=== PATIENT | female | born 1980 | race Caucasian/White ===

== ENCOUNTER 2016-05-10 03:28 | Emergency (ER) | payer SELFPAY ==
[2016-05-10 03:43] VITALS: BP 127/82
[2016-05-10] MEDS ORDERED: oxyCODONE/Acetamin 5/325 MG* TAB PO ONE (03:53)
[2016-05-10] MEDS ORDERED: Clindamycin CAP* 150 MG PO ONE (03:53)
--- NOTE | 2016-05-10 06:34 | ED ---
Isabell Pacheco Michael, scribed for Viet Nava MD on 05/10/16 at 0359 . Throat Pain/Nasal Congestion - HPI Summary HPI Summary: 35 y/o female comes to the ED presenting with upper gradual left dental pain that started a couple of days ago after eating sun flower seeds. Nothing has alleviated the dental pain. The pt denies a significant PMHx. - History of Current Complaint Chief Complaint: EDDentalPain Time Seen by Provider: 05/10/16 03:33 Hx Obtained From: Patient, Medical Records Onset/Duration: Gradual Onset, Lasting Days, Still Present Severity: Moderate Associated Signs And Symptoms: Negative: Negative - dental pain - Allergies/Home Medications Allergies/Adverse Reactions: Allergies Allergy/AdvReac Type Severity Reaction Status Date / Time Penicillin V Allergy Severe Stomach Verified 02/26/15 17:32 [From Penicil VK] Cramps PMH/Surg Hx/FS Hx/Imm Hx Endocrine/Hematology History: Denies: Hx Diabetes, Hx Thyroid Disease Cardiovascular History: Denies: Hx Hypertension Respiratory History: Denies: Hx Asthma, Hx Chronic Obstructive Pulmonary Disease (COPD) GI History: Denies: Hx Ulcer - Surgical History Surgery Procedure, Year, and Place: Ganglion Cyst right and left wrist Infectious Disease History: No Infectious Disease History: Denies: Hx Clostridium Difficile, Hx Hepatitis, Hx Human Immunodeficiency Virus (HIV), Hx of Known/Suspected MRSA, Hx Shingles, Hx Tuberculosis, Hx Known/ Suspected VRE, Hx Known/Suspected VRSA, History Other Infectious Disease, Traveled Outside the [place] in Last 30 Days - Family History Known Family History: Positive: Other - cirrhosis of liver - father, alcoholism Negative: Cardiac Disease, Hypertension, Diabetes - Social History Occupation: Employed Full-time Lives: With Family Alcohol Use: Rare Substance Use Type: Reports: Marijuana Substance Use Comment - Amount & Last Used: OCCASIONALLY once a month Smoking Status (MU): Heavy Every Day Tobacco Smoker Type: Cigarettes Amount Used/How Often: 1/2 PPD Review of Systems Negative: Fever Positive: Dental Pain All Other Systems Reviewed And Are Negative: Yes Physical Exam - Summary Physical Exam Summary: GENERAL EXAM GENERAL: Awake, alert, oriented, no acute distress, very pleasant HEENT: Head is normocephalipolc, atraumatic, anicteric sclera, clear conjunctiva , mucous membranes moist, no erythema, no discharge, no lesions, neck is supple , trachea is midline, no JVD CARDIAC: Regular rate and rhythm, S1, S2, no rub, no murmur, no gallop, 2+ radial and pedal pulses bilaterally RESPIRATORY: Clear to auscultation bilaterally with no rales, rhonchi, or wheezes, non-tender ABDOMEN: Bowel sounds positive, no bruit, soft, non-tender, no CVA tenderness EXTREMITIES: No edema, warm, dry, moving all extremities in a grossly normal manner NEUROLOGICAL: Mood is appropriate, moving all extremities in a grossly normal manner DENTAL: fracture 16th tooth no fluctuant mass Triage Information Reviewed: Yes Vital Signs On Initial Exam: Initial Vitals Temp Pulse Resp BP Pulse Ox 98.0 F 91 17 127/82 99 05/10/16 03:35 05/10/16 03:35 05/10/16 03:35 05/10/16 03:35 05/10/16 03:35 Vital Signs Reviewed: Yes Diagnostics - Vital Signs Vital Signs Temp Pulse Resp BP Pulse Ox 05/10/16 03:35 98.0 F 91 17 127/82 99 - Laboratory Lab Statement: Any lab studies that have been ordered have been reviewed, and results considered in the medical decision making process. EENT Course/Dx - Diagnoses Provider Diagnoses: dental pain Discharge - Discharge Plan Condition: Stable Disposition: HOME Prescriptions: Clindamycin CAP* [Cleocin 150 MG CAP*] 300 mg PO QID #40 cap oxyCODONE/Acetamin 5/325 MG* [Percocet 5/325 TAB*] 1 tab PO Q4H PRN #15 tab MDD 4 PRN Reason: Pain Patient Education Materials: Toothache (ED) Referrals: No Primary Care Phys,NOPCP [Primary Care Provider] - Additional Instructions: You will follow up with your dentist on 05/12/16. PLEASE RETURN TO THE EMERGENCY DEPARTMENT FOR NAUSEA, VOMITING, FEVER, PHOTOPHOBIA, CHEST PAIN, OR IF SYMPTOMS WORSEN. The documentation as recorded by the Isabell león Michael accurately reflects the service I personally performed and the decisions made by me, Viet Nava MD.
== END 2016-05-10 04:09 | disposition home or self-care (01) ==
LOC: ED 03:28
DX: K08.89 Other specified disorders of teeth and supporting structures (principal); F17.210 Nicotine dependence, cigarettes, uncomplicated; Z88.0 Allergy status to penicillin
CPT/HCPCS: 99282; A9270-GY

== ENCOUNTER → 2016-12-23 08:33 | Emergency (ER) | payer SELFPAY ==
[2016-12-23 09:57] VITALS: BP 142/93
--- NOTE | 2016-12-23 11:24 | ED ---
Throat Pain/Nasal Congestion - HPI Summary HPI Summary: Patient arrives to ED with CC of pain over left lower molar radiating to the jaw and ear. She states she fell 2 days ago and hit her tooth, which pushed the tooth into another which is s/p mid-root canal. She states she needs to have a full extraction of all teeth, but has been awaiting insurance. Notes to some trismus, but denies drooling or dysphagia. Pain is 10/10, sharp and throbbing. Denies airway compromise or SOB. Denies ear pain, eye pain, blurry vision or double vision. Otherwise healthy. Pain is worse with chewing and cold drinks, not better with ibuprofen. There is notable swelling over the bottom left lower mandible with no appreciated abscess. - History of Current Complaint Chief Complaint: EDDentalPain Time Seen by Provider: 12/23/16 09:04 Hx Obtained From: Patient Onset/Duration: Sudden Onset Severity: Moderate - Epiglottits Risk Factors Epiglottis Risk Factors: Negative - Allergies/Home Medications Allergies/Adverse Reactions: Allergies Allergy/AdvReac Type Severity Reaction Status Date / Time Penicillin V Allergy Severe Stomach Verified 02/26/15 17:32 [From Penicil VK] Cramps PMH/Surg Hx/FS Hx/Imm Hx Previously Healthy: Yes Endocrine/Hematology History: Denies: Hx Diabetes, Hx Thyroid Disease Cardiovascular History: Denies: Hx Hypertension Respiratory History: Denies: Hx Asthma, Hx Chronic Obstructive Pulmonary Disease (COPD) GI History: Denies: Hx Ulcer - Surgical History Surgery Procedure, Year, and Place: Ganglion Cyst right and left wrist - Immunization History Hx Pertussis Vaccination: No Immunizations Up to Date: Unable to Obtain/Confirm Infectious Disease History: No Infectious Disease History: Denies: Hx Clostridium Difficile, Hx Hepatitis, Hx Human Immunodeficiency Virus (HIV), Hx of Known/Suspected MRSA, Hx Shingles, Hx Tuberculosis, Hx Known/ Suspected VRE, Hx Known/Suspected VRSA, History Other Infectious Disease, Traveled Outside the [place] in Last 30 Days - Family History Known Family History: Positive: Other - cirrhosis of liver - father, alcoholism Negative: Cardiac Disease, Hypertension, Diabetes - Social History Occupation: Employed Full-time Lives: With Family Alcohol Use: Rare Hx Substance Use: Yes Substance Use Type: Reports: Marijuana Substance Use Comment - Amount & Last Used: OCCASIONALLY once a month Hx Tobacco Use: Yes Smoking Status (MU): Heavy Every Day Tobacco Smoker Type: Cigarettes Amount Used/How Often: 1/2 PPD Review of Systems Constitutional: Negative Negative: Fever, Chills Positive: Dental Pain Cardiovascular: Negative Gastrointestinal: Negative Genitourinary: Negative Positive: no symptoms reported, see HPI Skin: Negative Psychological: Normal All Other Systems Reviewed And Are Negative: Yes Physical Exam Triage Information Reviewed: Yes Vital Signs On Initial Exam: Initial Vitals Temp Pulse Resp BP Pulse Ox 97.3 F 73 20 134/82 98 12/23/16 08:39 12/23/16 08:39 12/23/16 08:39 12/23/16 08:39 12/23/16 08:39 Completion Of Physical Exam Limited Due To: Dementia Appearance: Positive: Well-Appearing, Well-Nourished Skin: Positive: Warm, Skin Color Reflects Adequate Perfusion Head/Face: Positive: Normal Head/Face Inspection. Negative: TMJ Tenderness, Cephalohematoma Eyes: Positive: EOMI, YOMAIRA, Conjunctiva Clear ENT: Positive: Dental tenderness. Negative: Tonsillar swelling, Tonsillar exudate Neck: Positive: Supple, Tenderness @ - cervical anterior LN Respiratory/Lung Sounds: Positive: Clear to Auscultation, Breath Sounds Present Cardiovascular: Positive: RRR, Pulses are Symmetrical in both Upper and Lower Extremities Musculoskeletal: Positive: Normal, Strength/ROM Intact Neurological: Positive: Speech Normal Psychiatric: Positive: Normal AVPU Assessment: Alert Diagnostics - Vital Signs Vital Signs Temp Pulse Resp BP Pulse Ox 12/23/16 09:56 98.8 F 73 16 142/93 12/23/16 08:49 97.6 F 72 16 143/82 99 12/23/16 08:39 97.3 F 73 20 134/82 98 - Laboratory Lab Statement: Any lab studies that have been ordered have been reviewed, and results considered in the medical decision making process. EENT Course/Dx - Course Course Of Treatment: No dental abscess or lesions seen over area of concern. Swelling noted over the left lower mandible. No erythema at site of pain. No drainage from area. Several dental caries, cavities, crowding and broken teeth throughout. Pain on palpation over mandible. No TMJ tenderness. Pain with opening and closing mouth. Poor dental hygiene and outpatient dental care. Will treat for possible dental infection/abscess based on symptoms of pain and radiation to jaw and ear. No allergies. Will treat with Clindamycin d/t allergy to penicillin. Patient is given percoset q6h x 3 days only as needed for breakthrough pain not well controlled with ibuprofen. Patient to follow up immediately with dentist. She is given dental follow ups, lollicaines, information on how to care for dental pain/ abscess. - Differential Diagnoses Differential Diagnoses: Dental Abscess, Dental Caries, Mandibular/Maxillary Trauma, Odontogenic Pain, Pain of Unknown Etiology - Diagnoses Provider Diagnoses: Pain, dental Discharge - Discharge Plan Condition: Stable Disposition: HOME Prescriptions: Clindamycin Cap(NF) [Clindamycin Cap 300 mg Cap(NF)] 300 mg PO Q6H #28 cap oxyCODONE/Acetamin 10/325(NF) [Percocet 10/325 (NF)] 1 tab PO Q6H #12 tab MDD 4 Patient Education Materials: Dental Abscess (ED), Acute Dental Trauma (ED), Toothache (ED) Referrals: No Primary Care Phys,NOPCP [Primary Care Provider] - Additional Instructions: You have been diagnosed with dental pain with possible infection: Antibiotics as prescribed to you. Clindamycin four times daily for 7 days. To minimize the potential for gastrointestinal intolerance, Clindamycin should be taken at the start of a meal. If you have any questions about your medication, please contact us or ask your pharmacist. Salt water rinses several times per day will improve healing time. Ibuprofen 600mg three times daily with meals for discomfort. For pain not well controlled with Ibuprofen, you may take Percoset up to 4 times daily I have given you information for dentists in the area. Please call today for appt. May use lollicaines over the area for comfort. Follow up with a dentist for routine care to prevent recurrence of infections. If fever, worsening pain or swelling develops, see your PCP, dentist or come back to the Emergency Department. Images - Images Dental: 1 - with crowding and broken tooth
== END | disposition home or self-care (01) ==
LOC: ED 08:33
DX: K08.89 Other specified disorders of teeth and supporting structures (principal); F17.210 Nicotine dependence, cigarettes, uncomplicated
CPT/HCPCS: 99282

== ENCOUNTER 2017-11-01 09:06 | Emergency (ER) | payer SELFPAY ==
[2017-11-01 09:27] VITALS: BP 131/68
[2017-11-01] MEDS ORDERED: Lidocaine 1% MPF* 2 ML VIAL INJ ONE (09:28)
[2017-11-01] MEDS ORDERED: Lidocaine 1%* 5 ML VIAL ONE (09:41)
--- NOTE | 2017-11-01 10:36 | UC ---
Skin Complaint HPI - HPI Summary HPI Summary: Patient present 13 hours s/p fall that occurred while she was walking her dog. The lead got wrapped around her leg, and she fell and hit the right side of her forehead on a log. She report no LOC, or neck pain, but does report pain at the site of her laceration. She cleaned it up and didn;t realize how deep it was until this morning. She states the area of the laceration is throbbing. She denies any double vision, headache, loc, neck pain, nausea or vomiting. - History of Current Complaint Chief Complaint: UCLaceration Time Seen by Provider: 11/01/17 09:19 Stated Complaint: HEAD LAC Hx Obtained From: Patient Hx Last Menstrual Period: 11/01/17 Onset/Duration: Sudden Onset, Lasting Hours Skin Exposure Onset/Duration: Hours Ago Timing: Constant Onset Severity: Moderate Current Severity: Moderate Pain Intensity: 3 Location: Discrete - right side of forehead. Aggravating Factor(s): Touch Alleviating Factor(s): Nothing Associated Signs & Symptoms: Positive: Negative Related History: Trauma - Allergy/Home Medications Allergies/Adverse Reactions: Allergies Allergy/AdvReac Type Severity Reaction Status Date / Time Penicillins Allergy Stomach Verified 11/01/17 09:27 Cramps Review of Systems Constitutional: Negative Skin: Other - laceration forehead. Eyes: Negative ENT: Negative Respiratory: Negative Cardiovascular: Negative Gastrointestinal: Negative Genitourinary: Negative Motor: Negative Neurovascular: Negative Musculoskeletal: Negative Neurological: Negative Psychological: Negative Is Patient Immunocompromised?: No All Other Systems Reviewed And Are Negative: Yes PMH/Surg Hx/FS Hx/Imm Hx Previously Healthy: Yes - Surgical History Surgical History: Yes Surgery Procedure, Year, and Place: Ganglion Cyst right and left wrist - Family History Known Family History: Positive: Other - cirrhosis of liver - father, alcoholism Negative: Cardiac Disease, Hypertension, Diabetes - Social History Occupation: Employed Full-time Lives: Alone Alcohol Use: Occasionally Substance Use Type: Marijuana Substance Use Comment - Amount & Last Used: OCCASIONALLY once a month Smoking Status (MU): Heavy Every Day Tobacco Smoker Type: Cigarettes Amount Used/How Often: 1/2 PPD - Immunization History Most Recent Influenza Vaccination: utd Most Recent Tetanus Shot: up to date with tetanus Most Recent Pneumonia Vaccination: none Physical Exam Triage Information Reviewed: Yes Appearance: Well-Appearing Vital Signs: Initial Vital Signs Temp 97.9 F 07/15/18 09:19 Pulse 68 11/01/17 09:19 Resp 18 11/01/17 09:19 BP 131/68 11/01/17 09:19 Pulse Ox 98 11/01/17 09:19 Vital Signs Reviewed: Yes Eye Exam: Normal ENT Exam: Normal Dental Exam: Normal Neck exam: Normal Neck: Positive: 1 Respiratory Exam: Normal Cardiovascular Exam: Normal Abdominal Exam: Normal Musculoskeletal Exam: Normal Neurological Exam: Normal Psychological Exam: Normal Skin Exam: Other - forehead laceratin; 1.0 cm L x 4.0 cm W x 1.0 cm D. minor soft tissue swelling surrounding the wound. no foreign body noted visualized a bloodless wound bed. Laceration Repair - Laceration Repair 1 Description: Linear Laceration Size After Repair: Length (cm) - 1.0, Width (mm) - 4.0, Depth (mm) - 1.0 Modified For Repair: No Type Injection: Local Anesthesia Used: 2.0% Lido Cleansing Completed Via Routine Prep: Yes Irrigation With Pressure Irrigation Device: Yes Closure Material: Sutures Closure Method: Single Layer Suture Type: Nylon - 4 simple interrupted sutures placed. Course/Dx - Course Course Of Treatment: Patient presents 13 hours s/p laceration of the forehead. Tetanus is reported to be up todate. 4 simple interrupted sutures placed to approxiamte the wound Keflex 500 mg four times daily RX. Recommed 48 hours f/u. Patient was offered plastic surgeon nirali daly. She understand this wound is high risk for infection given the delay in closure. We cleaned it here with hebiclens and steril water, Xrays were obtianed and no obvious foreign body seen. I could not see any foreign body in the wound, and patient did not sence foreign body in the wound. She verbalizes understanding of and in agreement with the discharge plan. - Differential Diagnoses - Skin Complaint Differential Diagnoses: Other - laceration - Diagnoses Provider Diagnoses: laceration Discharge - Sign-Out/Discharge Documenting (check all that apply): Patient Departure - Discharge Plan Condition: Stable Disposition: HOME Prescriptions: Cephalexin CAP* [Keflex CAP*] 500 mg PO QID #40 cap Patient Education Materials: Care For Your Stitches (DC), Laceration (DC) Forms: *Work Release Referrals: No Primary Care Phys,NOPCP [Primary Care Provider] - Additional Instructions: You will need to continuously monitor for signs of infection, given you cut your head on wood and didn't seek medical attention for over 13 hours after the injury. If you develop redness, pain, warmth or additional swelling seem immediate medical attention. The stitches will need to come out in 7-10 days. - Billing Disposition and Condition Condition: STABLE Disposition: Home Images Head: 1 - area of laceration.
--- NOTE | 2017-11-01 10:38 | RAD ---
INDICATION: Laceration to right forehead reportedly acquired after a fall off hiking the previous day. Requisition also notes "multiple red areas to neck " at the patient described to a dog leash getting caught around her neck. COMPARISON: None. TECHNIQUE: Routine views of the facial bones were obtained. REPORT: There is no radiographically apparent subcutaneous foreign body. There are no interruptions of the orbital margins bilaterally. The maxillary and bilateral zygomatic bones are intact. No air-fluid levels evident in the paranasal sinuses. IMPRESSION: No radiographically apparent acute abnormality. If the patient's symptoms persist, follow-up imaging is recommended.
== END 2017-11-01 10:35 | disposition home or self-care (01) ==
LOC: UCEAST 09:06
DX: S01.81XA Laceration without foreign body of other part of head, initial encounter (principal); F17.210 Nicotine dependence, cigarettes, uncomplicated; Y93.K1 Activity, walking an animal; Z88.0 Allergy status to penicillin; Y92.9 Unspecified place or not applicable
CPT/HCPCS: 12011; 70140; 99212; G0463

== ENCOUNTER 2017-11-08 12:48 | Emergency (ER) | payer SELFPAY ==
[2017-11-08 12:57] VITALS: BP 118/82
--- NOTE | 2017-11-08 13:17 | UC ---
Laceration HPI - HPI Summary HPI Summary: This is mau Selby documenting for attending Dr. Angela Thrasher MD. The patient is a 37 y/o F presenting to [facility] c/o laceration above right eyebrow with need for suture removal as advised to get done today. She fell on 10/31/17 while walking in the [place] with flip flops on when she fell, hit her head, and lost consciousness. She came to [facility] on 11/01/17 and had sutures placed. She additionally c/o dizziness, and swelling and tenderness to the wound area. She has been taking Cephalexin 4mg for infection but has missed approximately 7 pills. - History Of Current Complaint Chief Complaint: UCLaceration Stated Complaint: STITCHES REMOVAL Time Seen by Provider: 11/08/17 13:09 Hx Obtained From: Patient Hx Last Menstrual Period: 11/01/17 Laceration Location: Head - above right eyebrow Mechanism Of Injury: Blunt Trauma - falling and hitting hear Onset/Duration: Sudden Onset, Lasting Days, Still Present Severity: Mild Pain Intensity: 0 Pain Scale Used: 0-10 Numeric Head: 1 - laceration above right eyebrow - Allergies/Home Medications Allergies/Adverse Reactions: Allergies Allergy/AdvReac Type Severity Reaction Status Date / Time Penicillins Allergy Stomach Verified 11/01/17 09:27 Cramps PMH/Surg Hx/FS Hx/Imm Hx Other Endocrine History: NEGATIVE: diabetes Other Cardiovascular History: NEGATIVE: HTN - Surgical History Surgical History: Yes Surgery Procedure, Year, and Place: Ganglion Cyst right and left wrist - Family History Known Family History: Positive: Other - cirrhosis of liver - father, alcoholism Negative: Cardiac Disease, Hypertension, Diabetes - Social History Alcohol Use: Occasionally Substance Use Type: Marijuana Substance Use Comment - Amount & Last Used: OCCASIONALLY once a month Smoking Status (MU): Heavy Every Day Tobacco Smoker Type: Cigarettes Amount Used/How Often: 1/2 PPD - Immunization History Most Recent Influenza Vaccination: utd Most Recent Tetanus Shot: up to date with tetanus Most Recent Pneumonia Vaccination: none Review of Systems Constitutional: Other - dizziness Skin: Other - laceration to area above right eyebrow with swelling and tenderness All Other Systems Reviewed And Are Negative: Yes Physical Exam - Summary Physical Exam Summary: Appearance: Well-appearing, Well-nourished Skin: Warm, 1.3cm horitzontal laceration 2cm above right eyebrow with mild swelling and tenderness Eyes: Normal ENT: Normal Neck: Supple, nontender Respiratory: Clear to auscultation Cardiovascular: Regular rate, regular rhythm. Normal S1, S2. Abdomen: Soft, nontender Musculoskeletal: Normal, Strength/ROM Intact Neurological: Normal, A&Ox3 Psychiatric: Normal General: No acute distress Triage Information Reviewed: Yes Vital Signs: Initial Vital Signs Temp 98.3 F 11/08/17 12:53 Pulse 98 11/08/17 12:53 Resp 20 11/08/17 12:53 BP 118/82 11/08/17 12:53 Pulse Ox 98 11/08/17 12:53 Vital Signs Reviewed: Yes Laceration Course/Dx - Course/Dx Course Of Treatment: Suture removal on 1.3cm horizontal laceration 2 cm above right eyebrow, C/D/I, sutures in place, linear, cleansing complete. - Differential Dx - Laceration/Wound Provider Diagnoses: suture removal,. right forehead laceration Discharge - Sign-Out/Discharge Documenting (check all that apply): Patient Departure - Pt will be discharged home. - Discharge Plan Condition: Stable Disposition: HOME Patient Education Materials: Facial Laceration (ED), Stitches Removal (ED) Forms: *Work Release Referrals: No Primary Care Phys,NOPCP [Primary Care Provider] - - Billing Disposition and Condition Condition: STABLE Disposition: Home
== END 2017-11-08 13:26 | disposition home or self-care (01) ==
LOC: UCEAST 12:48
DX: S01.111D Laceration without foreign body of right eyelid and periocular area, subsequent encounter (principal); W19.XXXD Unspecified fall, subsequent encounter; Y92.821 Forest as the place of occurrence of the external cause
CPT/HCPCS: 99211; G0463

== ENCOUNTER 2017-11-16 19:09 | Emergency (ER) | payer SELFPAY ==
[2017-11-16 19:17] VITALS: BP 128/79
[2017-11-16] MEDS ORDERED: Ondansetron ODT TAB* 4 MG PO ONE (20:21)
--- NOTE | 2017-11-16 20:21 | UC ---
Abdominal Pain Female HPI - HPI Summary HPI Summary: Patient comes to the urgent care this afternoon with 24 hours of fever chills nausea vomiting and right flank pain. Patient noticed blood in her urine this afternoon. Patient has been unable to keep down food or fluids all day - History of Current Complaint Chief Complaint: UCGI Stated Complaint: VOMITING Time Seen by Provider: 11/16/17 20:13 Hx Obtained From: Patient Hx Last Menstrual Period: 11/01/17 ?: No Onset/Duration: Sudden Onset, Lasting Days - 1, Still Present Timing: Constant Pain Intensity: 9 Pain Scale Used: 0-10 Numeric Location: Discrete At: RUQ Radiates: Yes Radiates to: Back Aggravating Factor(s): Nothing Alleviating Factor(s): Nothing Associated Signs and Symptoms: Positive: Fever, Back Pain, Decreased Appetite, Nausea, Vomiting Allergies/Adverse Reactions: Allergies Allergy/AdvReac Type Severity Reaction Status Date / Time Penicillins Allergy Stomach Verified 11/16/17 19:17 Cramps Home Medications: Home Medications NK [No Home Medications Reported] 11/16/17 [History Confirmed 11/16/17] PMH/Surg Hx/FS Hx/Imm Hx Previously Healthy: Yes - Surgical History Surgical History: Yes Surgery Procedure, Year, and Place: Ganglion Cyst right and left wrist - Family History Known Family History: Positive: Other - cirrhosis of liver - father, alcoholism Negative: Cardiac Disease, Hypertension, Diabetes - Social History Occupation: Employed Full-time Lives: With Family Alcohol Use: Occasionally Substance Use Type: Marijuana Substance Use Comment - Amount & Last Used: OCCASIONALLY once a month Smoking Status (MU): Heavy Every Day Tobacco Smoker Type: Cigarettes Amount Used/How Often: 1/2 PPD - Immunization History Most Recent Influenza Vaccination: utd Most Recent Tetanus Shot: up to date with tetanus Most Recent Pneumonia Vaccination: none Review of Systems Constitutional: Fever, Chills, Fatigue Skin: Negative Eyes: Negative ENT: Negative Respiratory: Negative Cardiovascular: Negative Gastrointestinal: Abdominal Pain, Vomiting, Nausea Genitourinary: Other - right flank pain Motor: Negative Neurovascular: Negative Musculoskeletal: Negative Neurological: Negative Psychological: Negative Is Patient Immunocompromised?: No All Other Systems Reviewed And Are Negative: Yes Physical Exam Triage Information Reviewed: Yes Appearance: Well-Nourished, Ill-Appearing, Pain Distress Vital Signs: Initial Vital Signs Temp 97.5 F 07/30/18 19:13 Pulse 71 11/16/17 19:13 Resp 18 11/16/17 19:13 BP 128/79 11/16/17 19:13 Pulse Ox 99 11/16/17 19:13 Vital Signs Reviewed: Yes Eye Exam: Normal Eyes: Positive: Conjunctiva Clear ENT Exam: Normal ENT: Positive: Normal ENT inspection, Hearing grossly normal. Negative: Trismus , Muffled voice, Hoarse voice, Dental tenderness, Sinus tenderness Dental Exam: Normal Neck exam: Normal Neck: Positive: Supple, Nontender Respiratory Exam: Normal Respiratory: Positive: Chest non-tender, No respiratory distress, No accessory muscle use Cardiovascular Exam: Normal Cardiovascular: Positive: RRR, Pulses Normal, Brisk Capillary Refill Abdominal Exam: Normal, Other Abdomen Description: Positive: No Organomegaly, Soft, CVA Tenderness (R), Other : - right flank and ruq tenderness. Negative: Distended, Guarding, Hepatomegaly , McBurney's Point Tenderness, Peritoneal Signs, Pulsatile Mass Bowel Sounds: Positive: Present Musculoskeletal Exam: Normal Musculoskeletal: Positive: Strength Intact, ROM Intact, No Edema Neurological Exam: Normal Neurological: Positive: Alert, Muscle Tone Normal Psychological Exam: Normal Skin Exam: Normal Diagnostics - Laboratory Diagnostic Studies Completed/Ordered: urine-blood, leukesterase, nitrites, protien Abd Pain Female Course/Dx - Course Course Of Treatment: zofran, npo, directly to ed for further evaluation and treatment - Differential Dx/Diagnosis Provider Diagnoses: right flank pain, hematuria, fever (Patient reported) Discharge - Sign-Out/Discharge Documenting (check all that apply): Patient Departure - Discharge Plan Condition: Fair Disposition: HOME-RECOMMEND TO ED Patient Education Materials: Hematuria (ED) Referrals: No Primary Care Phys,NOPCP [Primary Care Provider] - Additional Instructions: Nothing to eat or drink until evaluated by the emergency department physician - Billing Disposition and Condition Condition: FAIR Disposition: Home-Recommend to ED
== END 2017-11-16 20:38 | disposition home health service (06) ==
LOC: UCEAST 19:09
DX: R50.9 Fever, unspecified (principal); R11.2 Nausea with vomiting, unspecified; R10.9 Unspecified abdominal pain; R31.9 Hematuria, unspecified; Z88.0 Allergy status to penicillin; F17.210 Nicotine dependence, cigarettes, uncomplicated
CPT/HCPCS: 81003; 84702; 87086; 99212; A9270-GY; G0463

== ENCOUNTER 2017-11-16 20:50 | Emergency (ER) | payer SELFPAY ==
--- NOTE | 2017-11-16 21:09 | ED ---
Abdominal Pain/Female - HPI Summary HPI Summary: 37 y/o female c/o severe, constant R side ABD pain 09:00 this morning. R side under rib pain. Associated sx: N/V. Decreased appetite. Sx tonsillectomy. Alleviated by lying on her R side aggravated on her L. This is scribe Ed Fiona documenting for attending Umer Woodruff MD. - History of Current Complaint Chief Complaint: EDAbdPain Stated Complaint: PAIN RT SIDE Time Seen by Provider: 11/16/17 21:05 Hx Obtained From: Patient Hx Last Menstrual Period: 11/01/17 Onset/Duration: Lasting Hours, Still Present Timing: Constant Pain Intensity: 9 Pain Scale Used: 0-10 Numeric Location: Discrete At: RUQ Aggravating Factor(s): Other: - lying on L hours Alleviating Factor(s): Position - lying on R side Associated Signs and Symptoms: Positive: Decreased Appetite, Nausea, Vomiting Allergies/Adverse Reactions: Allergies Allergy/AdvReac Type Severity Reaction Status Date / Time Penicillins Allergy Stomach Verified 11/16/17 20:57 Cramps PMH/Surg Hx/FS Hx/Imm Hx Previously Healthy: No Endocrine/Hematology History: Denies: Hx Diabetes, Hx Thyroid Disease Cardiovascular History: Denies: Hx Hypertension Respiratory History: Denies: Hx Asthma, Hx Chronic Obstructive Pulmonary Disease (COPD) GI History: Denies: Hx Ulcer - Surgical History Surgery Procedure, Year, and Place: Ganglion Cyst right and left wrist Infectious Disease History: No Infectious Disease History: Denies: Hx Clostridium Difficile, Hx Hepatitis, Hx Human Immunodeficiency Virus (HIV), Hx of Known/Suspected MRSA, Hx Shingles, Hx Tuberculosis, Hx Known/ Suspected VRE, Hx Known/Suspected VRSA, History Other Infectious Disease, Traveled Outside the [place] in Last 30 Days - Family History Known Family History: Positive: Other - cirrhosis of liver - father, alcoholism Negative: Cardiac Disease, Hypertension, Diabetes - Social History Alcohol Use: Occasionally Hx Substance Use: Yes Substance Use Type: Reports: Marijuana Substance Use Comment - Amount & Last Used: OCCASIONALLY once a month Hx Tobacco Use: Yes Smoking Status (MU): Heavy Every Day Tobacco Smoker Type: Cigarettes Amount Used/How Often: 1/2 PPD Review of Systems Constitutional: Negative Eyes: Negative ENT: Negative Cardiovascular: Negative Respiratory: Negative Positive: Abdominal Pain, Vomiting, Nausea, Other - decreased Genitourinary: Negative Musculoskeletal: Negative Skin: Negative Neurological: Negative Psychological: Normal All Other Systems Reviewed And Are Negative: Yes Physical Exam - Summary Physical Exam Summary: Appearance: Well appearing, no pain distress Skin: warm, dry, reflects adequate perfusion Head/face: normal Eyes: EOMI, YOMAIRA ENT: normal Neck: supple, non-tender Respiratory: CTA, breath sounds present Cardiovascular: RRR, pulses symmetrical Abdomen: Soft, tenderness @ RUQ and RLQ. Bowel: present Musculoskeletal: normal, strength/ROM intact Neuro: normal, sensory motor intact, A&Ox3 Triage Information Reviewed: Yes Vital Signs On Initial Exam: Initial Vitals Temp Pulse Resp BP Pulse Ox 98.6 F 45 16 136/78 99 11/16/17 20:54 11/16/17 20:54 11/16/17 20:54 11/16/17 20:54 11/16/17 20:54 Vital Signs Reviewed: Yes Diagnostics - Vital Signs Vital Signs Temp Pulse Resp BP Pulse Ox 11/16/17 20:54 98.6 F 45 16 136/78 99 - Laboratory Result Diagrams: 11/16/17 21:47 11/16/17 21:47 Lab Statement: Any lab studies that have been ordered have been reviewed, and results considered in the medical decision making process. - CT ABD/PEL CT CT Interpretation Completed By: Radiologist - The previously noted ultrasound abnorality is seen on the CT study. The lesion is enhancing with mildly lobulated borders which become isointense on the delayed images. There is no calcification or presence of fat. It enhances homogeneously except for a small curvilinear hypodensity. This most likely is a hepatic adenoma. Is the patient on oral contraceptives? the contrast pattern makes it unlikely to be a hemangioma. cannot exclude an atypical fibronodular hyperplasia. It is unlikely to represent a metstatic tumor. 2. Abnormal appearance to the colon raising the possibility of inflammatory bowel disorder or infection. Fluid is seen in the gallbladder fossa with periportal edema as well as fluid within the pelvis. - Ultrasound No standard instances Ultrasound Interpretation Completed By: Radiologist - GALLBLADDER US - No evidence of cholelithiasis or chlecystitis. Isoechoic mass located in right lobe liver measuring 3.4 cm. This lesion is not hypervascular. Suggest further evaluation with other imaging modalities possibly with contrast to further characterize this lesion. 7 mm calcified stone located at the junction of the proximal and ureter and right renal hilum. this is nonobstructing at the current time. Bilateral ureteral jets in the bladder. Abdominal Pain Fem Course/Dx - Course Course Of Treatment: 37 y/o female c/o severe, constant R side ABD pain 09:00 this morning. R side under rib pain. Associated sx: N/V. Decreased appetite. Sx tonsillectomy. Alleviated by lying on her R side aggravated on her L. GALLBLADDER US - No evidence of cholelithiasis or chlecystitis. Isoechoic mass located in right lobe liver measuring 3.4 cm. This lesion is not hypervascular. Suggest further evaluation with other imaging modalities possibly with contrast to further characterize this lesion. 7 mm calcified stone located at the junction of the proximal and ureter and right renal hilum. this is nonobstructing at the current time. Bilateral ureteral jets in the bladder. ABD/ PEL CT shows The previously noted ultrasound abnorality is seen on the CT study. The lesion is enhancing with mildly lobulated borders which become isointense on the delayed images. There is no calcification or presence of fat. It enhances homogeneously except for a small curvilinear hypodensity. This most likely is a hepatic adenoma. Is the patient on oral contraceptives? the contrast pattern makes it unlikely to be a hemangioma. cannot exclude an atypical fibronodular hyperplasia. It is unlikely to represent a metstatic tumor. 2. Abnormal appearance to the colon raising the possibility of inflammatory bowel disorder or infection. Fluid is seen in the gallbladder fossa with periportal edema as well as fluid within the pelvis. CT indicates pt has liver adenoma. Pt will d/c home with f/u with GI. - Diagnoses Differential Diagnosis: Positive: Appendicitis, Diverticulitis, Pancreatitis, Renal Colic, Urinary Tract Infection Provider Diagnoses: Adenoma of liver, Abdominal pain Discharge - Sign-Out/Discharge Documenting (check all that apply): Patient Departure - Discharge Plan Condition: Stable Disposition: HOME Prescriptions: Ondansetron ODT TAB* [Zofran 4 MG Odt TAB*] 4 mg PO Q8H PRN #15 tab.odt MDD 3 PRN Reason: Nausea Pantoprazole TAB (NF) [Protonix TAB (NF)] 40 mg PO DAILY #30 tab Patient Education Materials: Abdominal Pain (ED) Referrals: Damian Becerra MD [Medical Doctor] - 3 Days (Please call for an appointment in 3 -5 DAYS) Additional Instructions: RETURN TO THE ED FOR CHANGING/WORSENING SYMPTOMS - Billing Disposition and Condition Condition: STABLE Disposition: Home
[2017-11-16] MEDS ORDERED: NS 0.9% 1000 ML* 1,000 ML IV ONE (21:29)
[2017-11-16 21:59] LABS: ABS Basophils 0 10^3/ul (0-0.2); ABS Eosinophils 0 10^3/ul (0-0.6); ABS Lymphocytes 0.8 10^3/ul (1.0-4.8); ABS Monocytes 0.2 10^3/ul (0-0.8); ABS Neutrophils 7.2 10^3/ul (1.5-7.7); ABS Nucleated RBC 0 10^3/ul; Eosinophil % 0 % (0-6); Hematocrit 38 % (35-47); Hemoglobin 12.8 g/dl (12.0-16.0); Lymphocyte % 9.8 % (25-47); Mean Corpuscular HGB Conc 34 g/dl (31-36); Mean Corpuscular Hemoglobin 31 pg (27-31); Mean Corpuscular Volume 91 fL (80-97); Mean Platelet Volume 9.1 um3 (7.4-10.4); Nucleated Red Blood Cells % 0.1; Platelet Count 190 10^3/ul (150-450); Red Blood Count 4.22 10^6/ul (4.00-5.40); Red Cell Distribution Width 14 % (10.5-15); White Blood Count 8.2 10^3/ul (3.5-10.8)
[2017-11-16 22:08] LABS: Urine Appearance Turbid; Urine Blood 3+ (Negative); Urine Color Amber; Urine Ketones 1+ (Negative); Urine Protein 2+(100 mg/dL) (Negative); Urine Red Blood Cell 3+(>10/hpf) (Absent); Urine Specific Gravity 1.029 (1.010-1.030); Urine Urobilinogen Negative (Negative); Urine White Blood Cell Absent (Absent)
[2017-11-16 22:10] LABS: INR 0.88 (0.77-1.02)
[2017-11-16 22:20] LABS: EGFR Non-African American 113.1 (>60)
[2017-11-16] MEDS ORDERED: Iohexol 300* (CONTRAST) 10 ML SDV IV ONE (23:17)
[2017-11-17] MEDS ORDERED: Ondansetron ODT TAB* 4 MG SL PRN (01:07)
[2017-11-17 02:26] VITALS: BP 124/74
--- NOTE | 2017-11-17 07:21 | RAD ---
Indication: Cholecystitis, right flank pain. Real-time sonography of the right upper quadrant was performed. The liver measures 15.8 cm in length. There is a isoechoic mass in the right lobe of liver without increased flow measuring 3.4 x 2.1 x 2.[address] is suggested. The gallbladder demonstrates no gallstones, pericholecystic fluid or wall thickening. The common duct measures up to 0.3 cm. Right kidney measures 12.3 x 4.7 cm with a calculus in the right renal hilum measuring 6 x 7 x 7 mm. Bilateral ureteral jets are identified. Visualized portions of pancreas are unremarkable. Aorta and inferior vena cava are unremarkable. IMPRESSION: Liver mass right lobe of liver measuring up to 3.4 cm which is isoechoic. Correlation with CT is suggested. No cholelithiasis or biliary duct dilatation is noted. 7 mm calculi in the right mid kidney. No hydronephrosis is noted.
--- NOTE | 2017-11-17 09:34 | RAD ---
Indication: Appendicitis. Contrast: Administered 81.3 ml of OMNIPAQUE 300 mg/ml. CT of the abdomen and pelvis was performed after IV contrast administration. No oral contrast was administered. Coronal and sagittal reconstructed images were obtained. The lung bases demonstrate no pleural fluid, nodules or masses. Heart is of normal size without evidence of pericardial effusion. The liver is normal in size. Again noted is the isoechoic lesion identified on ultrasound which demonstrates rapid arterial phase enhancement measuring up to 2.3 cm. This appears to be isodense to liver on the delayed images. This is nonspecific but may represent a hepatic adenoma, focal nodular hyperplasia. Hemangioma is considered less likely. Correlation with MRI of the liver with Eovist could be performed if clinically warranted. This mass was present on previous exam of August 17, 2008. The gallbladder is partially contracted with a small amount of pericholecystic fluid. No calcified gallstone is noted. No gallbladder wall thickening is noted. The common duct is not dilated. No calcified gallstones are noted. The pancreas demonstrates no mass or pancreatic duct dilatation. The spleen is normal in size. No adrenal lesions are noted. The kidneys demonstrate symmetric nephrograms without focal lesions. CT of the pelvis demonstrates no retroperitoneal or pelvic lymphadenopathy. The urinary bladder is unremarkable. No dilated loops of bowel are noted. No definite appendicitis is noted, although evaluation is limited due to lack of oral contrast. A small amount of free fluid is noted in the pelvis. The urinary bladder is unremarkable. The sigmoid and transverse colon is collapsed. Underlying mucosal thickening is not totally excluded. The bony structures are grossly unremarkable. IMPRESSION: 1. Mass in the inferior tip of the right lobe of the liver may represent hepatic adenoma or focal nodular hyperplasia. Correlation with MRI with Eovist could be performed. This mass has remained stable since August 17, 2008 and is consistent with a benign finding. 2. Collapsed transverse colon and sigmoid colon with mucosal thickening may represent inflammatory bowel disease. Small amount of free fluid is noted in the cul-de-sac. A small amount of pericholecystic fluid is noted. 3. Appendix is not clearly identified.
== END 2017-11-17 01:30 | disposition home or self-care (01) ==
LOC: ED 20:50
DX: D13.4 Benign neoplasm of liver (principal); R10.9 Unspecified abdominal pain; R11.2 Nausea with vomiting, unspecified
CPT/HCPCS: 36415; 74177; 76705; 80053; 81003; 81015; 83605; 83690; 84484; 84702; 85025; 85610; 85730; 99282; Q9967

== ENCOUNTER 2018-03-12 14:03 | Emergency (ER) | payer OTHER ==
[2018-03-12 14:39] VITALS: BP 140/68
--- NOTE | 2018-03-12 15:11 | UC ---
Hand/Wrist HPI - HPI Summary HPI Summary: 37-year-old woman comes to clinic today with a chief complaint of right third fourth and fifth finger injuries. He was at work today when a door close on her fingers. She suffered lacerations on the third and fourth fingers but not the fifth. Bleeding was controlled by direct pressure. Pain with movement of the fingers better with. She reports full range of motion full-strength of her fingers. - History Of Current Complaint Chief Complaint: UCLaceration Stated Complaint: HAND INJURY Time Seen by Provider: 03/12/18 14:32 Hx Last Menstrual Period: current Pain Intensity: 5 - Allergies/Home Medications Allergies/Adverse Reactions: Allergies Allergy/AdvReac Type Severity Reaction Status Date / Time Penicillins Allergy Stomach Verified 03/12/18 14:39 Cramps Home Medications: Home Medications NK [No Home Medications Reported] 03/12/18 [History Confirmed 03/12/18] PMH/Surg Hx/FS Hx/Imm Hx Previously Healthy: Yes - Surgical History Surgical History: Yes Surgery Procedure, Year, and Place: Ganglion Cyst right and left wrist - Family History Known Family History: Positive: Other - cirrhosis of liver - father, alcoholism Negative: Cardiac Disease, Hypertension, Diabetes - Social History Alcohol Use: Rare Substance Use Type: Marijuana Substance Use Comment - Amount & Last Used: rarely Smoking Status (MU): Light Every Day Tobacco Smoker Type: Cigarettes Amount Used/How Often: 1/2 PPD - Immunization History Most Recent Influenza Vaccination: utd Most Recent Tetanus Shot: 2014 Most Recent Pneumonia Vaccination: none Review of Systems All Other Systems Reviewed And Are Negative: Yes Constitutional: Positive: Negative Skin: Positive: Other - There is a superficial laceration distal third finger on the dorsum distal to the DIP. 1 cm in length and there is no active bleeding. On the fourth finger there is superficial laceration on both the dorsum and the palmar aspect each one is 5 mm and they're both superficial with no active bleeding. Eyes: Positive: Negative ENT: Positive: Negative Respiratory: Positive: Negative Cardiovascular: Positive: Negative Gastrointestinal: Positive: Negative Motor: Positive: Negative Neurovascular: Positive: Negative Musculoskeletal: Positive: Other: - SEE HPI Neurological: Positive: Negative Psychological: Positive: Negative Is Patient Immunocompromised?: No Physical Exam Triage Information Reviewed: Yes Appearance: Well-Appearing, No Pain Distress, Well-Nourished Vital Signs: Initial Vital Signs Temp 98.3 F 03/12/18 14:32 Pulse 70 03/12/18 14:32 Resp 14 03/12/18 14:32 BP 140/68 03/12/18 14:32 Pulse Ox 100 03/12/18 14:32 Vital Signs Reviewed: Yes Eye Exam: Normal Eyes: Positive: Conjunctiva Clear Neck exam: Normal Neck: Positive: Supple Respiratory: Positive: No respiratory distress Musculoskeletal Exam: Normal Musculoskeletal: Positive: Strength Intact, ROM Intact Neurological Exam: Normal Neurological: Positive: Alert, Muscle Tone Normal Psychological Exam: Normal Psychological: Positive: Age Appropriate Behavior Skin: Positive: Other - There is a 1 cm superficial laceration dorsum of the right third finger distal to the DIP but not into the nailbed. There is no bleeding. There are 2 superficial lacerations on the fourth finger on the right hand and one on the dorsum and one on the palmar aspect they are both superficial is no bleeding. Hand/Wrist Course/Dx - Course Course Of Treatment: Order Information: HAND - RIGHT MINIMUM 3 VIEWS. Accession Number: [id number]. CPT: 29250. HISTORY: CRUSH INJURY RT 3RD/4TH/ 5TH FINGERS. COMPARISONS: None. VIEWS: 4 , Frontal, lateral, and oblique views of the right hand. FINDINGS: BONE DENSITY: Normal. BONES: There is no displaced fracture. JOINTS: There is no arthropathy. ALIGNMENT: There is no dislocation. SOFT TISSUES: Unremarkable. OTHER FINDINGS: None. IMPRESSION: NO ACUTE OSSEOUS INJURY. IF SYMPTOMS PERSIST, RECOMMEND REPEAT IMAGING. . <Electronically signed by Antonio Wooten MD in OV> 03/12/18 [id number]. I discussed the x-ray reports with the patient. Her wounds were cleaned and dressed by nursing. Patient declined a splint at this time. Plan is to get a reevaluation if not completely improved. Her last tetanus was 2015. - Differential Dx/Diagnosis Provider Diagnoses: RIGHT 3RD/4TH AND 5TH FINGERS CRUSH INJURY. SUPERFICIAL LACERATIONS RIGHT 3RD AND 4TH FINGERS Discharge - Sign-Out/Discharge Documenting (check all that apply): Patient Departure All imaging exams completed and their final reports reviewed: Yes - Discharge Plan Condition: Stable Disposition: HOME Patient Education Materials: Crush Injury (ED), Finger Laceration (ED), Laceration Without Closure (ED) Referrals: [facility] [Outside] Additional Instructions: FOLLOW UP WITH YOUR DOCTOR IF NOT COMPLETELY IMPROVED. GET RECHECKED FOR ANY WORSENING OF YOUR CONDITION OR QUESTIONS OR CONCERNS. - Billing Disposition and Condition Condition: STABLE Disposition: Home
== END 2018-03-12 15:35 | disposition home or self-care (01) ==
LOC: UCEAST 14:03
DX: S67.192A Crushing injury of right middle finger, initial encounter (principal); S67.194A Crushing injury of right ring finger, initial encounter; S67.196A Crushing injury of right little finger, initial encounter; S61.212A Laceration without foreign body of right middle finger without damage to nail, initial encounter; S61.214A Laceration without foreign body of right ring finger without damage to nail, initial encounter; W23.0XXA Caught, crushed, jammed, or pinched between moving objects, initial encounter; Y92.89 Other specified places as the place of occurrence of the external cause; Y99.0 Civilian activity done for income or pay; Z88.0 Allergy status to penicillin; F17.210 Nicotine dependence, cigarettes, uncomplicated
CPT/HCPCS: 99212; G0463

== ENCOUNTER 2018-04-12 15:35 | Emergency (ER) | payer OTHER ==
[2018-04-12] MEDS ORDERED: Bupivacaine 0.25% W/EPI* 50 ML VIAL INJ ONE (15:50)
[2018-04-12] MEDS ORDERED: Bupivacaine 0.25% W/EPI* 10 ML SDV INJ ONE (16:00)
[2018-04-12] MEDS ORDERED: Sulfamethox/Trimethoprim DS 800/160* TAB PO ONE (16:46)
--- NOTE | 2018-04-12 16:52 | ED ---
Upper Extremity Pain - HPI Summary HPI Summary: Patient complains of getting tip of right fifth digit caught on the hinge side of a closing door. Denies any other injury, pain or symptoms. - History of Current Complaint Chief Complaint: EDLacSutureRecheck Stated Complaint: FINGER INJURY Time Seen by Provider: 04/12/18 15:41 Hx Obtained From: Patient Hx Last Menstrual Period: current Mechanism Of Injury: Blunt Trauma Onset/Duration: Started Minutes Ago Timing: Constant Severity Initially: Severe Severity Currently: Severe Pain Location: Finger Character: Aching, Throbbing Aggravating Factor(s): Movement Alleviating Factor(s): Nothing Associated Signs & Symptoms: Positive: Negative - Allergies/Home Medications Allergies/Adverse Reactions: Allergies Allergy/AdvReac Type Severity Reaction Status Date / Time Penicillins Allergy Stomach Verified 03/12/18 14:39 Cramps PMH/Surg Hx/FS Hx/Imm Hx Endocrine/Hematology History: Denies: Hx Anticoagulant Therapy, Hx Diabetes, Hx Thyroid Disease Cardiovascular History: Denies: Hx Hypertension Respiratory History: Denies: Hx Asthma, Hx Chronic Obstructive Pulmonary Disease (COPD) GI History: Denies: Hx Ulcer History: Denies: Hx Dialysis, Hx Renal Disease EENT History: Denies: Hx Deafness Neurological History: Denies: Hx CVA Psychiatric History: Denies: Hx Autism - Surgical History Surgery Procedure, Year, and Place: Ganglion Cyst right and left wrist Infectious Disease History: No Infectious Disease History: Denies: Hx Clostridium Difficile, Hx Hepatitis, Hx Human Immunodeficiency Virus (HIV), Hx of Known/Suspected MRSA, Hx Shingles, Hx Tuberculosis, Hx Known/ Suspected VRE, Hx Known/Suspected VRSA, History Other Infectious Disease, Traveled Outside the [place] in Last 30 Days - Family History Known Family History: Positive: Other - cirrhosis of liver - father, alcoholism Negative: Cardiac Disease, Hypertension, Diabetes - Social History Occupation: Employed Full-time Alcohol Use: Rare Hx Substance Use: Yes Substance Use Type: Reports: Marijuana Substance Use Comment - Amount & Last Used: rarely Hx Tobacco Use: Yes Smoking Status (MU): Light Every Day Tobacco Smoker Type: Cigarettes Amount Used/How Often: 1/2 PPD Review of Systems Constitutional: Negative Eyes: Negative ENT: Negative Cardiovascular: Negative Respiratory: Negative Gastrointestinal: Negative Genitourinary: Negative Musculoskeletal: Other Skin: Other Neurological: Negative Psychological: Normal All Other Systems Reviewed And Are Negative: Yes Physical Exam - Summary Physical Exam Summary: Open wound on the dorsal surface of distal phalanx of right fifth digit. Flexion and extension intact at each individual joint of right fifth digit. Sensation intact at tip of finger. Cap refill immediate. Nail and nail bed intact. Triage Information Reviewed: Yes Vital Signs On Initial Exam: Initial Vitals Temp Pulse Resp BP Pulse Ox 97.3 F 112 20 131/55 98 04/12/18 15:37 04/12/18 15:37 04/12/18 15:37 04/12/18 15:37 04/12/18 15:37 Vital Signs Reviewed: Yes Appearance: Positive: Well-Appearing Skin: Positive: Warm Head/Face: Positive: Normal Head/Face Inspection Eyes: Positive: Normal Neck: Positive: Supple Respiratory/Lung Sounds: Positive: Clear to Auscultation Cardiovascular: Positive: Normal Abdomen Description: Positive: Nontender Musculoskeletal: Positive: Normal Neurological: Positive: Normal Psychiatric: Positive: Normal AVPU Assessment: Alert - Georgie Coma Scale Best Eye Response: 4 - Spontaneous Best Motor Response: 6 - Obeys Commands Best Verbal Response: 5 - Oriented Coma Scale Total: 15 Procedures - Laceration/Wound Repair 1 Location: upper extremity Description: Irregular Anesthesia: Digital, Lido, Marcaine, Epi Length, Depth and Shape: 3cm x .5cm Betadine Prep?: Yes Irrigated w/ Saline (ccs): 1,000 Laceration/Wound Explored: clean Debridement: minimal Number of Sutures: 7 - 4.0 ethilon Layer Closure?: No Sterile Dressing Applied?: No Diagnostics - Vital Signs Vital Signs Temp Pulse Resp BP Pulse Ox 04/12/18 15:37 97.3 F 112 20 131/55 98 - Laboratory Lab Statement: Any lab studies that have been ordered have been reviewed, and results considered in the medical decision making process. Course/Dx - Course Course Of Treatment: Patient complains of getting tip of right fifth digit caught on the hinge side of a closing door. Denies any other injury, pain or symptoms. Physical exam:Open wound on the dorsal surface of distal phalanx of right fifth digit. Flexion and extension intact at each individual joint of right fifth digit. Sensation intact at tip of finger. Cap refill immediate. Nail and nail bed intact. X-ray positive for tuft fracture of distal phalanx of right fifth digit. Wound cleaned extensively with a liter of normal saline and Hibiclens and Betadine. Wound closed with sutures. Rx for Bactrim. - Diagnoses Provider Diagnoses: Open fracture of tuft of distal phalanx of finger Discharge - Sign-Out/Discharge Documenting (check all that apply): Patient Departure - Discharge Plan Condition: Stable Disposition: HOME Prescriptions: HYDROcodone/ACETAMIN 5-325 MG* [[place] 5-325 TAB*] 1 tab PO TID 2 Days #4 tab MDD 3 tabs Sulfamethox/Trimethoprim DS* [Bactrim DS 800/160 TAB*] 1 tab PO BID 7 Days #14 tab Patient Education Materials: Care For Your Stitches (ED), Laceration (ED), Finger Fracture (ED), Finger Laceration (ED) Referrals: No Primary Care Phys,NOPCP [Primary Care Provider] - Gustavo Arias MD [Medical Doctor] - Additional Instructions: Sutures out in 10 days. Take antibiotics as directed. May wash with warm running water and soap starting tomorrow. Otherwise keep finger clean and dry and protected with splint. Alternate ibuprofen 600 mg with Tylenol 650 mg every 3 hours for pain control. Follow up with orthopedics Dr. Ma. Return to the ED for any new or worsening symptoms - Billing Disposition and Condition Condition: STABLE Disposition: Home
[2018-04-12 17:07] VITALS: BP 116/67
[2018-04-13] MEDS ORDERED: Sulfamethox/Trimethoprim DS 800/160* TAB PO ONE (11:26)
== END 2018-04-12 17:05 | disposition home or self-care (01) ==
LOC: ED 15:35
DX: S62.636B Displaced fracture of distal phalanx of right little finger, initial encounter for open fracture (principal); W23.0XXA Caught, crushed, jammed, or pinched between moving objects, initial encounter; Y92.9 Unspecified place or not applicable; Z88.0 Allergy status to penicillin; F17.210 Nicotine dependence, cigarettes, uncomplicated
CPT/HCPCS: 12001; 73140; 99282; A9270-GY

== ENCOUNTER 2018-04-14 12:31 | Emergency (ER) | payer OTHER ==
--- NOTE | 2018-04-14 13:54 | UC ---
Skin Complaint HPI - HPI Summary HPI Summary: 37 yo female presents with ?med reaction. She tells me that she was in the ER on 04/12 for a finger lac and broken tuft. The lac was sutured and she was placed on Bactrim. She took one dose of bactrim yesterday and broke out in a rash. No SOB or edema. Her rash resolved with stopping Bactrim. Today she did not take any bactrim and she thinks she needs a different antibiotic. - History of Current Complaint Time Seen by Provider: 04/14/18 13:54 Stated Complaint: MED REACTION Hx Obtained From: Patient Hx Last Menstrual Period: current Onset/Duration: Sudden Onset Onset Severity: Mild Current Severity: Mild Pain Intensity: 3 Pain Scale Used: 0-10 Numeric - Allergy/Home Medications Allergies/Adverse Reactions: Allergies Allergy/AdvReac Type Severity Reaction Status Date / Time Penicillins Allergy Stomach Verified 03/12/18 14:39 Cramps sulfamethoxazole Allergy Swelling Verified 04/14/18 13:50 [From Bactrim] trimethoprim [From Bactrim] Allergy Swelling Verified 04/14/18 13:50 PMH/Surg Hx/FS Hx/Imm Hx - Additional Past Medical History Additional PMH: None Other History Of: Negative For: Anticoagulant Therapy - Surgical History Surgical History: Yes Surgery Procedure, Year, and Place: Ganglion Cyst right and left wrist - Family History Known Family History: Positive: Other - cirrhosis of liver - father, alcoholism Negative: Cardiac Disease, Hypertension, Diabetes - Social History Occupation: Employed Full-time Lives: With Family Alcohol Use: Rare Substance Use Type: Marijuana Substance Use Comment - Amount & Last Used: rarely Smoking Status (MU): Light Every Day Tobacco Smoker Type: Cigarettes Amount Used/How Often: 1/2 PPD - Immunization History Most Recent Influenza Vaccination: utd Most Recent Tetanus Shot: 2014 Most Recent Pneumonia Vaccination: none Review of Systems All Other Systems Reviewed And Are Negative: Yes Constitutional: Positive: Negative Skin: Positive: Other - Sutures in place on finger Eyes: Positive: Negative ENT: Positive: Negative Respiratory: Positive: Negative Cardiovascular: Positive: Negative Neurovascular: Positive: Negative Neurological: Positive: Negative Psychological: Positive: Negative Physical Exam - Summary Physical Exam Summary: GENERAL: NAD. WDWN. No pain distress. SKIN: RIGHT 5th digits with sutures in place. Mild edema. No drainage, erythema , or warmth. No rash. NECK: Supple. Nontender. No lymphadenopathy. CHEST: No accessory muscle use. Breathing comfortably and in no distress. CV: Pulses intact. Cap refill <2seconds NEURO: Alert. PSYCH: Age appropriate behavior. Triage Information Reviewed: Yes Vital Signs: Vital Signs: Temp Pulse Resp BP Pulse Ox 97.7 F 75 16 136/81 98 04/14/18 13:52 04/14/18 13:52 04/14/18 13:52 04/14/18 13:52 04/14/18 13:52 Vital Signs Reviewed: Yes Course/Dx - Course Course Of Treatment: Suspect allergic reaction to the Bactrim - given her PCN allergy and open fracture, will rx for clindamycin. - Diagnoses Provider Diagnosis: Medication reaction Discharge - Sign-Out/Discharge Documenting (check all that apply): Patient Departure All imaging exams completed and their final reports reviewed: No Studies - Discharge Plan Condition: Stable Disposition: HOME Prescriptions: Clindamycin Cap(NF) [Clindamycin Cap 300 mg Cap(NF)] 300 mg PO TID #21 cap Patient Education Materials: Laceration (DC) Referrals: No Primary Care Phys,NOPCP [Primary Care Provider] - Additional Instructions: If you develop a fever, shortness of breath, chest pain, new or worsening symptoms - please call your PCP or go to the ED. Keep the bandaged clean, dry, and intact - Billing Disposition and Condition Condition: STABLE Disposition: Home
[2018-04-14 13:58] VITALS: BP 136/81
== END 2018-04-14 14:28 | disposition home or self-care (01) ==
LOC: UCEAST 12:31
DX: R21 Rash and other nonspecific skin eruption (principal); T37.0X5A Adverse effect of sulfonamides, initial encounter; F17.210 Nicotine dependence, cigarettes, uncomplicated; Z88.0 Allergy status to penicillin; Y92.9 Unspecified place or not applicable
CPT/HCPCS: 99212; G0463

== ENCOUNTER 2018-12-28 15:37 | Emergency (ER) | payer MEDICAID ==
[2018-12-28 15:48] VITALS: BP 132/67
--- NOTE | 2018-12-28 16:36 | UC ---
Respiratory Complaint HPI - HPI Summary HPI Summary: 2-3 DAYS OF COUGH, NASAL CONGESTION AND SCRATCHY THROAT. FEELS THE COUGH IS MOVING INTO HER CHEST AND IS CONCERNED ABOUT PNEUMONIA. NO FEVER, NAUSEA OR SHORTNESS OF BREATH. IS 19 WEEKS . BABY IS MOVING WELL. NO VAGINAL BLEEDING OR UNUSUAL DISCHARGE. NO CONTRACTIONS. NO URINARY SYMPTOMS. - History of Current Complaint Chief Complaint: UCRespiratory Stated Complaint: 18 WEEKS , SORE TROAT, COUGHING Time Seen by Provider: 12/28/18 15:47 Hx Obtained From: Patient Hx Last Menstrual Period: current Onset/Duration: Gradual Onset, Lasting Days, Still Present Timing: Constant Severity Initially: Moderate Severity Currently: Moderate Pain Intensity: 4 Pain Scale Used: 0-10 Numeric Character: Cough: Productive Aggravating Factors: Nothing Alleviating Factors: Nothing Associated Signs And Symptoms: Positive: URI, Nasal Congestion. Negative: Dyspnea, Fever, Chills, Pleuritic Chest Pain, Wheezing - Allergies/Home Medications Allergies/Adverse Reactions: Allergies Allergy/AdvReac Type Severity Reaction Status Date / Time Penicillins Allergy Stomach Verified 12/28/18 15:48 Cramps sulfamethoxazole Allergy Swelling Verified 12/28/18 15:48 [From Bactrim] trimethoprim [From Bactrim] Allergy Swelling Verified 12/28/18 15:48 PMH/Surg Hx/FS Hx/Imm Hx Previously Healthy: Yes Other History Of: Negative For: Anticoagulant Therapy - Surgical History Surgical History: None Surgery Procedure, Year, and Place: Ganglion Cyst right and left wrist - Family History Known Family History: Positive: None - Pt denies FMHX, Other - cirrhosis of liver - father, alcoholism Negative: Cardiac Disease, Hypertension, Diabetes - Social History Alcohol Use: None Substance Use Type: None Substance Use Comment - Amount & Last Used: rarely not while Smoking Status (MU): Light Every Day Tobacco Smoker Type: Cigarettes Amount Used/How Often: 1/2 PPD - Immunization History Most Recent Influenza Vaccination: utd Most Recent Tetanus Shot: 2014 Most Recent Pneumonia Vaccination: none Review of Systems All Other Systems Reviewed And Are Negative: Yes Constitutional: Positive: Negative ENT: Positive: Sore Throat, Nasal Discharge Respiratory: Positive: Cough Cardiovascular: Positive: Negative Gastrointestinal: Positive: Negative Genitourinary: Positive: Negative Physical Exam Triage Information Reviewed: Yes Appearance: Well-Appearing, No Pain Distress, Well-Nourished Vital Signs: Initial Vital Signs Temp 98.7 F 12/28/18 15:43 Pulse 99 12/28/18 15:43 Resp 18 12/28/18 15:43 BP 132/67 12/28/18 15:43 Pulse Ox 100 12/28/18 15:43 Eyes: Positive: Conjunctiva Clear ENT: Positive: Hearing grossly normal, Pharynx normal, Nasal congestion Neck: Positive: Supple, Nontender, No Lymphadenopathy Respiratory Exam: Normal Cardiovascular Exam: Normal Abdomen Description: Positive: Soft Musculoskeletal: Positive: No Edema Neurological: Positive: Alert Psychological: Positive: Age Appropriate Behavior Skin: Negative: Rashes Respiratory Course/Dx - Course Course Of Treatment: PATIENT DECLINED STREP TEST AND URINE TESTING TODAY. ALSO DECLINES HEART TONES STATING SHE HAS AN OB APPOINTMENT IN 3 DAYS AND WILL DO ALL OF THIS THERE. PHYSICAL EXAM TODAY SUPPORTS A VIRAL ILLNESS THAT WILL RESOLVE WITH TIME. I ADVISED HER THAT HER SYMPTOMS MAY LINGER FOR A LITTLE LONGER THAN USUAL GIVEN THAT SHE IS AND THEREFORE IMMUNOSUPPRESSED. REMINDED NO NSAIDS DURING . SHE WILL TAKE TYLENOL NEEDED. ADVISED SHE CAN ALSO USE [id number] AFRIN FOR NASAL CONGESTION. - Differential Dx/Diagnosis Provider Diagnosis: Upper respiratory infection Discharge ED - Sign-Out/Discharge Documenting (check all that apply): Patient Departure All imaging exams completed and their final reports reviewed: No Studies - Discharge Plan Condition: Stable Disposition: HOME Patient Education Materials: Upper Respiratory Infection (ED) Referrals: No Primary Care Phys,NOPCP [Primary Care Provider] - Additional Instructions: YOUR SYMPTOMS ARE LIKELY VIRALLY MEDIATED AND SHOULD RESOLVE ON THEIR OWN WITH TIME ALTHOUGH IT WILL TAKE LONGER THAN USUAL DUE TO YOUR BEING . NO INDICATION FOR ANTIBIOTICS AT PRESENT. REST, HYDRATE, TYLENOL NEEDED. NO IBUPROFEN OR ALEVE IN . KEEP YOUR OB APPT IN 3 DAYS. USE OTC AFRIN FOR NASAL CONGESTION. 1-2 SPRAYS IN EACH NOSTRIL BEFORE BED NEEDED. DO NOT USE FOR MORE THAN 3-4 DAYS IN A ROW TO PREVENT DEVELOPING REBOUND CONGESTION. THIS IS OKAY IN . - Billing Disposition and Condition Condition: STABLE Disposition: Home
== END 2018-12-28 16:25 | disposition home or self-care (01) ==
LOC: UCEAST 15:37
DX: J06.9 Acute upper respiratory infection, unspecified (principal); F17.210 Nicotine dependence, cigarettes, uncomplicated; Z88.0 Allergy status to penicillin; Z88.2 Allergy status to sulfonamides
CPT/HCPCS: 99211; G0463

== ENCOUNTER 2019-01-25 17:06 | Emergency (ER) | payer MEDICAID ==
[2019-01-25 18:51] LABS: ABS Eosinophils 0.1 10^3/ul (0-0.6); ABS Lymphocytes 2.4 10^3/ul (1.0-4.8); ABS Monocytes 0.8 10^3/ul (0-0.8); ABS Neutrophils 7.2 10^3/ul (1.5-7.7); Eosinophil % 1.1 %; Hematocrit 37 % (35-47); Hemoglobin 12.8 g/dL (12.0-16.0); Lymphocyte % 22.9 %; Mean Corpuscular HGB Conc 35 g/dL (31-36); Mean Corpuscular Hemoglobin 32 pg (27-31); Mean Corpuscular Volume 91 fL (80-97); Mean Platelet Volume 8.9 fL (7.4-10.4); Platelet Count 220 10^3/uL (150-450); Red Cell Distribution Width 13 % (10-15); White Blood Count 10.6 10^3/uL (3.5-10.8)
[2019-01-25 19:09] LABS: Albumin 3.8 g/dL (3.2-5.2); Albumin/Globulin Ratio 1.6 (1-3); C Reactive Protein 6.8 mg/L (<8.01); Calcium 8.9 mg/dL (8.6-10.3); EGFR African American 144.4 (>60); EGFR Non-African American 119.3 (>60); Globulin 2.4 g/dL (2-4); Potassium 3.4 mmol/L (3.5-5.0); Total Bilirubin 0.2 mg/dL (0.2-1.0); Total Protein 6.2 g/dL (6.4-8.9)
[2019-01-25 19:54] LABS: Urine Appearance Cloudy; Urine Bacteria 1+ (Absent); Urine Bilirubin Negative (Negative); Urine Blood Negative (Negative); Urine Color Yellow; Urine Glucose Negative (Negative); Urine Ketones Negative (Negative); Urine Nitrite Negative (Negative); Urine Protein Negative (Negative); Urine Red Blood Cell 1+(3-5/hpf) (Absent); Urine Specific Gravity 1.011 (1.010-1.030); Urine Squamous Epithelial Cell Present (Absent); Urine Urobilinogen Negative (Negative); Urine White Blood Cell Trace(0-5/hpf) (Absent)
--- NOTE | 2019-01-25 20:09 | ED ---
Abdominal Pain/Female - HPI Summary HPI Summary: Pt is a 38 y/o F presenting to the ED with a chief complaint of abdominal pain on the R upper side of her abdomen. She states she only recently found out she was and has not yet seen her [facility]. She reports some nausea, vomiting , dizziness, headache, and slight dysuria. The abdominal pain has been going on for a couple of weeks intermittently, but worsened over the past day or so. She notes she had a miscarriage before this where she bled for about 3 months, and has had another miscarriage when she was young. She denies constipation, diarrhea, or hematuria. - History of Current Complaint Chief Complaint: EDAbdPain Stated Complaint: 20 WKS PREG/CRAMPING,DIZZINESS PER PT Time Seen by Provider: 01/25/19 18:55 Hx Obtained From: Patient ?: Yes Onset/Duration: Sudden Onset, Lasting Weeks, Still Present Timing: Intermittent Episode Lasting - hours Severity Initially: Moderate Severity Currently: Moderate Pain Intensity: 6 Pain Scale Used: 0-10 Numeric Location: Other - R upper side, toward flank Radiates: No Aggravating Factor(s): Nothing Alleviating Factor(s): Nothing Associated Signs and Symptoms: Positive: Diaphoresis, Dizzy, Urinary Symptoms - dysuria, Nausea, Vomiting, Other: - RODRIGUEZ. Negative: Constipation, Diarrhea Allergies/Adverse Reactions: Allergies Allergy/AdvReac Type Severity Reaction Status Date / Time Penicillins Allergy Stomach Verified 01/25/19 19:01 Cramps sulfamethoxazole Allergy Swelling Verified 01/25/19 19:01 [From Bactrim] trimethoprim [From Bactrim] Allergy Swelling Verified 01/25/19 19:01 PMH/Surg Hx/FS Hx/Imm Hx Previously Healthy: Yes Endocrine/Hematology History: Denies: Hx Anticoagulant Therapy, Hx Diabetes, Hx Thyroid Disease Cardiovascular History: Denies: Hx Hypertension Respiratory History: Denies: Hx Asthma, Hx Chronic Obstructive Pulmonary Disease (COPD) GI History: Denies: Hx Ulcer History: Denies: Hx Dialysis, Hx Renal Disease Sensory History: Denies: Hx Deafness Neurological History: Denies: Hx CVA Psychiatric History: Denies: Hx Autism - Surgical History Surgery Procedure, Year, and Place: Ganglion Cyst right and left wrist Infectious Disease History: No Infectious Disease History: Denies: Hx Clostridium Difficile, Hx Hepatitis, Hx Human Immunodeficiency Virus (HIV), Hx of Known/Suspected MRSA, Hx Shingles, Hx Tuberculosis, Hx Known/ Suspected VRE, Hx Known/Suspected VRSA, History Other Infectious Disease, Traveled Outside the [place] in Last 30 Days - Family History Known Family History: Positive: Other - cirrhosis of liver - father, alcoholism Negative: Cardiac Disease, Hypertension, Diabetes - Social History Alcohol Use: None Hx Substance Use: Yes Substance Use Type: Reports: None Substance Use Comment - Amount & Last Used: rarely not while Hx Tobacco Use: Yes Smoking Status (MU): Light Every Day Tobacco Smoker Type: Cigarettes Amount Used/How Often: 1/2 PPD Review of Systems Positive: Abdominal Pain - R upper side, Vomiting, Nausea. Negative: Diarrhea, Other - constipation Positive: dysuria Neurological: Other - dizziness All Other Systems Reviewed And Are Negative: Yes Physical Exam - Summary Physical Exam Summary: Constitutional: Well-developed, Well-nourished, Alert. (-) Distressed Skin: Warm, Dry HENT: Normocephalic; Atraumatic Eyes: Conjunctiva normal Neck: Musculoskeletal ROM normal neck. (-) JVD, (-) Stridor, (-) Tracheal deviation Cardio: Rhythm regular, rate normal, Heart sounds normal; Intact distal pulses; Radial pulses are 2+ and symmetric. (-) Murmur Pulmonary/Chest wall: Effort normal. (-) Respiratory distress, (-) Wheezes, (-) Rales Abd: Gravid uterus with fundus just below the umbilicus, (-) Distension, (-) Guarding, (-) Rebound Musculoskeletal: (-) Edema Lymph: (-) Cervical adenopathy Neuro: Alert, Oriented x3 Psych: Mood and affect Normal Triage Information Reviewed: Yes Vital Signs On Initial Exam: Initial Vitals Temp Pulse Resp BP Pulse Ox 98.3 F 84 18 157/95 100 01/25/19 17:27 01/25/19 17:27 01/25/19 17:27 01/25/19 17:27 01/25/19 17:27 Vital Signs Reviewed: Yes Procedures - Sedation Patient Received Moderate/Deep Sedation with Procedure: No Diagnostics - Vital Signs Vital Signs Temp Pulse Resp BP Pulse Ox 01/25/19 17:27 98.3 F 84 18 157/95 100 - Laboratory Lab Results: Lab Results 01/25/19 01/25/19 01/25/19 Range/Units 18:35 18:35 18:35 WBC 10.6 (3.5-10.8) 10^3/uL RBC 4.00 (3.70-4.87) 10^6 /uL Hgb 12.8 (12.0-16.0) g/dL Hct 37 (35-47) % MCV 91 (80-97) fL MCH 32 H (27-31) pg MCHC 35 (31-36) g/dL RDW 13 (10-15) % Plt Count 220 (150-450) 10^3/uL MPV 8.9 (7.4-10.4) fL Neut % (Auto) 68.2 % Lymph % (Auto) 22.9 % Bee % (Auto) 7.6 % Eos % (Auto) 1.1 % Baso % (Auto) 0.2 % Absolute Neuts (auto) 7.2 (1.5-7.7) 10^3/ul Absolute Lymphs (auto) 2.4 (1.0-4.8) 10^3/ul Absolute Monos (auto) 0.8 (0-0.8) 10^3/ul Absolute Eos (auto) 0.1 (0-0.6) 10^3/ul Absolute Basos (auto) 0.0 (0-0.2) 10^3/ul Absolute Nucleated RBC 0.0 10^3/ul Nucleated RBC % 0.0 Sodium 137 (135-145) mmol/L Potassium 3.4 L (3.5-5.0) mmol/L Chloride 106 (101-111) mmol/L Carbon Dioxide 26 (22-32) mmol/L Anion Gap 5 (2-11) mmol/L BUN 8 (6-24) mg/dL Creatinine 0.57 (0.51-0.95) mg/dL Est GFR ( Amer) 144.4 (>60) Est GFR (Non-Af Amer) 119.3 (>60) BUN/Creatinine Ratio 14.0 (8-20) Glucose 90 (70-100) mg/dL Lactic Acid 0.8 (0.5-2.0) mmol/L Calcium 8.9 (8.6-10.3) mg/dL Total Bilirubin 0.20 (0.2-1.0) mg/dL AST 16 (13-39) U/L ALT 7 (7-52) U/L Alkaline Phosphatase 48 (34-104) U/L C-Reactive Protein 6.80 (<8.01) mg/L Total Protein 6.2 L (6.4-8.9) g/dL Albumin 3.8 (3.2-5.2) g/dL Globulin 2.4 (2-4) g/dL Albumin/Globulin Ratio 1.6 (1-3) Lipase 20 (11.0-82.0) U/L Beta HCG, Quant 5235.00 mIU/mL Urine Color Urine Appearance Urine pH (5-9) Ur Specific [place] (1.010-1.030) Urine Protein (Negative) Urine Ketones (Negative) Urine Blood (Negative) Urine Nitrate (Negative) Urine Bilirubin (Negative) Urine Urobilinogen (Negative) Ur Leukocyte Esterase (Negative) Urine WBC (Auto) (Absent) Urine RBC (Auto) (Absent) Ur Squamous Epith Cells (Absent) Urine Bacteria (Absent) Urine Glucose (Negative) 01/25/19 Range/Units 19:45 WBC (3.5-10.8) 10^3/uL RBC (3.70-4.87) 10^6 /uL Hgb (12.0-16.0) g/dL Hct (35-47) % MCV (80-97) fL MCH (27-31) pg MCHC (31-36) g/dL RDW (10-15) % Plt Count (150-450) 10^3/uL MPV (7.4-10.4) fL Neut % (Auto) % Lymph % (Auto) % Bee % (Auto) % Eos % (Auto) % Baso % (Auto) % Absolute Neuts (auto) (1.5-7.7) 10^3/ul Absolute Lymphs (auto) (1.0-4.8) 10^3/ul Absolute Monos (auto) (0-0.8) 10^3/ul Absolute Eos (auto) (0-0.6) 10^3/ul Absolute Basos (auto) (0-0.2) 10^3/ul Absolute Nucleated RBC 10^3/ul Nucleated RBC % Sodium (135-145) mmol/L Potassium (3.5-5.0) mmol/L Chloride (101-111) mmol/L Carbon Dioxide (22-32) mmol/L Anion Gap (2-11) mmol/L BUN (6-24) mg/dL Creatinine (0.51-0.95) mg/dL Est GFR ( Amer) (>60) Est GFR (Non-Af Amer) (>60) BUN/Creatinine Ratio (8-20) Glucose (70-100) mg/dL Lactic Acid (0.5-2.0) mmol/L Calcium (8.6-10.3) mg/dL Total Bilirubin (0.2-1.0) mg/dL AST (13-39) U/L ALT (7-52) U/L Alkaline Phosphatase (34-104) U/L C-Reactive Protein (<8.01) mg/L Total Protein (6.4-8.9) g/dL Albumin (3.2-5.2) g/dL Globulin (2-4) g/dL Albumin/Globulin Ratio (1-3) Lipase (11.0-82.0) U/L Beta HCG, Quant mIU/mL Urine Color Yellow Urine Appearance Cloudy Urine pH 6.0 (5-9) Ur Specific [place] 1.011 (1.010-1.030) Urine Protein Negative (Negative) Urine Ketones Negative (Negative) Urine Blood Negative (Negative) Urine Nitrate Negative (Negative) Urine Bilirubin Negative (Negative) Urine Urobilinogen Negative (Negative) Ur Leukocyte Esterase Trace A (Negative) Urine WBC (Auto) Trace(0-5/hpf) (Absent) Urine RBC (Auto) 1+(3-5/hpf) A (Absent) Ur Squamous Epith Cells Present A (Absent) Urine Bacteria 1+ A (Absent) Urine Glucose Negative (Negative) Result Diagrams: 01/25/19 18:35 01/25/19 18:35 Lab Statement: Any lab studies that have been ordered have been reviewed, and results considered in the medical decision making process. - Ultrasound Gallbladder US Ultrasound Interpretation Completed By: Radiologist Summary of Ultrasound Findings: There is moderate to severe right-sided hydronephrosis noted. There are multiple right kidney stones noted the largest measuring 9 mm. ED physician has reviewed this report. Abdominal Pain Fem Course/Dx - Course Course Of Treatment: Patient is here with right upper quadrant pain during . Patient was asymptomatic on my evaluation. Patient had blood performed which is grossly unremarkable. Patient had an ultrasound showed no evidence cystitis the patient did have some gallstones present. Patient had bacteriuria and was started on Keflex. Patient was encouraged to follow up with CLEANING LAB[facility]ER - Diagnoses Provider Diagnoses: Kidney stone, , UTI (urinary tract infection) Discharge ED - Sign-Out/Discharge Documenting (check all that apply): Patient Departure - Discharge Plan Condition: Stable Disposition: HOME Prescriptions: Cephalexin CAP* [Keflex CAP*] 500 mg PO BID 5 Days #10 cap Patient Education Materials: Kidney Stones (ED), Urinary Tract Infection in (ED) Referrals: [facility] [Provider Group] Additional Instructions: Please follow up with your CLEANING LABORER within the next 1-3 days to begin care. Come back to the emergency department with any severe abdominal pain, fever, vomiting, or other concerning symptoms. - Billing Disposition and Condition Condition: STABLE Disposition: Home - Attestation Statements Document Initiated by Scribe: Yes Documenting Scribe: Brittney Salmon Provider For Whom Sharon is Documenting (Include Credential): Bjorn Pacheco MD. Scribe Attestation: Brittney Pacheco, scribed for Bjorn Pacheco MD. on 01/26/19 at 0228. Scribe Documentation Reviewed: Yes Provider Attestation: The documentation as recorded by the clementinaibBrittney ambriz accurately reflects the service I personally performed and the decisions made by Bjorn ching MD. Status of Scribe Document: Viewed
[2019-01-25] MEDS: Cephalexin CAP* 500 MG PO ONE (20:37)
[2019-01-25 20:38] VITALS: BP 117/75
== END 2019-01-25 20:38 | disposition home or self-care (01) ==
LOC: ED 17:06
DX: O23.40 Unspecified infection of urinary tract in pregnancy, unspecified trimester (principal); O99.89 Other specified diseases and conditions complicating pregnancy, childbirth and the puerperium; N13.2 Hydronephrosis with renal and ureteral calculous obstruction; O99.330 Smoking (tobacco) complicating pregnancy, unspecified trimester; F17.210 Nicotine dependence, cigarettes, uncomplicated; Z3A.00 Weeks of gestation of pregnancy not specified; Z88.1 Allergy status to other antibiotic agents; Z88.0 Allergy status to penicillin; Z88.2 Allergy status to sulfonamides
CPT/HCPCS: 36415; 76705; 80053; 81003; 81015; 83605; 83690; 84702; 85025; 86140; 87086; 99283; A9270-GY

== ENCOUNTER 2019-05-24 17:47 | Inpatient (IN) | payer MEDICAID ==
[2019-05-24] MEDS ORDERED: Dinoprostone* 10 MG VAG.SUPP VAGINAL ONE (18:34)
[2019-05-24] MEDS ORDERED: Lactated Ringers 1000 ML Bag* 1,000 ML IV ONE (18:34)
[2019-05-24] MEDS ORDERED: Buffered Lidocaine 1% SYRIN* 1 ML/SYRINGE INTRADERM ONE (18:34)
[2019-05-24] MEDS ORDERED: Lactated Ringers 1000 ML Bag* 1,000 ML IV SCH (19:00)
--- NOTE | 2019-05-24 19:11 | HP ---
General Information - Reason for Visit Pt here for cervical ripening and IOL for suspected IUGR. - General Information Maternal Age: 38 Grav: 3 Para: 0 SAB: 1 IEA: 1 Estimated Due Date: 05/31/19 Determined By: Early Ultrasound Gestational Age in Weeks/Days: 39 0/7 Maternal Blood Type and Rh: A Positive - Results this Serology/RPR Result: Non-Reactive Rubella Result: Immune HBsAg Result: Negative HIV Result: Negative GBS Culture Result: Positive Past Medical History Delivery History: See Records - Primiparous Pertinent Past Medical History: Non-Contributory Pertinent Past Surgical History: None Pertinent Family History: See Records - hypertension - Antepartal Records Antepartal Records: Reviewed, Complicated by: - suspected IUGR, tobacco use, subclinical hypothyroidism Review of Systems Constitutional: Comfortable CV Complaint: No Respiratory: Shortness of Breath: No Gastrointestinal: No Nausea/Vomiting, Normal Bowel Movement Genitourinary: No Dysuria, No Bleeding, No Leaking Fluid Musculoskeletal: No Complaint, No Epigastric Pain Neurological: No Headache, No Visual Changes Movement: Normal Exam Allergies/Adverse Reactions: Allergies Penicillins Allergy (Verified 01/25/19 19:01) Stomach Cramps sulfamethoxazole [From Bactrim] Allergy (Verified 01/25/19 19:01) Swelling trimethoprim [From Bactrim] Allergy (Verified 01/25/19 19:) Swelling T-98.8, P-90, R-17, 130/75, O2- 100% - Measurements Height: 5 ft 4 in Weight: 83.007 kg Weight in lbs: 183.583413 Body Mass Index (BMI): 31.4 Pre- Weight: 63.503 kg Weight Gained This : 43 lbs and 0 ozs - Exam Breast: Breast Exam Deferred CVA: No CVA Tenderness Extremities: No Edema Heart: Normal Rhythm/Heart Sounds HEENT: No Significant Findings Lungs: Clear Bilaterally Rectal: Rectal Exam Deferred Reflexes: DTR 2+ Thyroid: No Thyromegaly - Abdominal Exam Abdomen Exam: Non-Tender, Fundal Height Consistent with Dates - Ultrasound/Biophysical Profile Ultrasound Status: Not Done Targeted Exam Findings See L&D Outpatient Visit Provider Note for Findings: N/A Estimated Weight: 5.5# Cervical Exam: 1cm Effacement: 60% Station: -1 Presenting Part: Vertex Membrane Status: Intact Bleeding/Discharge: None EFM Findings - External Monitor Findings Baseline Heart Rate: 135 External Monitor Findings: Accelerations Present, No Pattern of Variable or Late Decelerations, Variability Moderate, Baseline Stable Contractions: None Assessment/Plan - Assessment 38 year old at 39 0/7 weeks gestation, with suspected IUGR here for cervical ripening and IOL. No evidence of acidemia. - Obstetrical Risk Factors Obstetrical Risk Factors: GBS Positive, IUGR - Plan Plan: Cervical Ripening, Admit - Anticipate Vaginal Delivery Plan Comment: Will initiate GBS prophylaxis with onset active labor or SROM - Date/Time of Admission Date of Admission: 05/24/19 Time of Admission: 18:40
--- NOTE | 2019-05-24 21:12 | PN ---
Progress Note - Progress Note Date of Service: 05/24/19 SOAP: Subjective: Pt comfortable, denies UCs. FOB at bedside. Objective: FHR: Baseline 135/ moderate variability/ + accels/ no decels UCs: none Cervical exam deferred Assessment: No evidence of acidemia. Not in labor. Plan: Consulted with Dr. Quezada. Pt okay for intermittent monitoring overnight. Will put back on the monitor if experiencing increasing uterine activity.
[2019-05-25 04:16] LABS: Urine Benzodiazepine Screen None Detected (None Detect); Urine Opiates Screen None Detected (None Detect)
--- NOTE | 2019-05-25 08:43 | PN ---
Progress Note - Progress Note Date of Service: 05/25/19 Note: Subjective: Pt comfortable, denies UCs FOB and mother at bedside Objective: 117/64, temp 98 FHR: Baseline 130/ moderate variability/ + accels/ no decels UCs: none VE: 1.5/60/-1, vtx, intact, anterior Assessment: IUP at 39+1 not in active labor IOL for IUGR (2.9%; S/D 2.3) No evidence of acidemia. No contractions Plan: PARQ discussion about Cook catheter and Pitocin. Pt in agreement with plan. Continuous monitoring per protocol Pain meds prn Anticipate progression to active labor
[2019-05-25] MEDS ORDERED: Oxytocin in LR* 20 UNITS/1,000 ML BAG IVPB ONE (08:56)
[2019-05-25 09:56] LABS: ABS Monocytes 0.6 10^3/ul (0-0.8); ABS Neutrophils 5.5 10^3/ul (1.5-7.7); Eosinophil % 0.6 %; Hematocrit 36 % (35-47); Hemoglobin 12.8 g/dL (12.0-16.0); Lymphocyte % 24.3 %; Mean Corpuscular HGB Conc 35 g/dL (31-36); Mean Corpuscular Hemoglobin 33 pg (27-31); Mean Corpuscular Volume 92 fL (80-97); Platelet Count 211 10^3/uL (150-450); Red Blood Count 3.94 10^6 /uL (3.70-4.87); Red Cell Distribution Width 13 % (10-15); White Blood Count 8.2 10^3/uL (3.5-10.8)
--- NOTE | 2019-05-25 10:05 | PN ---
Progress Note - Progress Note Date of Service: 05/25/19 Note: Cook cervical ripening balloon placed without complications. Balloons inflated to 80mL/80mL. Pt tolerated procedure well.
[2019-05-25] MEDS: Oxytocin in LR* 20 UNITS/1,000 ML BAG IVPB SCH ×2 (10:06→22:37)
[2019-05-25] MEDS ORDERED: Morphine 10 MG/ML VIAL (1 ml) IV ONE (11:09)
[2019-05-25] MEDS ORDERED: Promethazine INJ(RESTRICTED)* 25 MG/ML 1 ML VIAL IV PRN (11:09)
--- NOTE | 2019-05-25 11:09 | PN ---
Progress Note - Progress Note Date of Service: 05/25/19 Note: Subjective: Called by RN, pt very uncomfortable. 4 episodes to the bathroom within the hour , diaphoretic, lightheaded. Asking for balloon catheter to be removed. Pt also asking for pain medication. FOB sleeping at bedside. Mother at bedside, supportive. Objective: 130/77, temp 98 FHR: Baseline 130/ moderate variability/ + accels/ no decels UCs: q3-4 mins, palpate mild-moderate VE: 3.5/70/-1, vtx, intact, anterior Assessment: IUP at 39+1; IOL for IUGR (2.9%; S/D 2.3) Early labor, VSS No evidence of acidemia. Removed Cook catheter, pt tolerated well. Plan: Titrate Pitocin as tolerated Continuous monitoring per protocol Morphine and phenergen now Anticipate progression to active labor
[2019-05-25] MEDS ORDERED: ceFAZolin 2 GM in NS PREMIX(*) 2 GM/100 ML BAG IVPB ONE (11:48)
--- NOTE | 2019-05-25 11:51 | PN ---
Progress Note - Progress Note Date of Service: 05/25/19 Note: Spoke to pt and mother about PCN allergy. States had "convulsions" while on it as a kid. GBS resistant to clindamycin. Pt has used Keflex in the past, no issues. Called inpatient pharmacy to confirm use of cefazolin for GBS prophylaxis. Per pharmacist, sydni Wu for use.
[2019-05-25] MEDS ORDERED: ceFAZolin 2 GM PREMIX in ORs 2 GM/50 ML BAG IVPB ONE (12:02)
[2019-05-25] MEDS ORDERED: OBEPIDURAL* 250 ML EPIDURAL ONE (13:47)
--- NOTE | 2019-05-25 14:09 | PN ---
Progress Note - Progress Note Date of Service: 05/25/19 Note: Subjective: Called by RN, pt very uncomfortable. Pt very uncomfortable with contractions. Desires epidural. FOB at bedside, not involved. Mother at bedside, supportive. Objective: FHR: Baseline 130/ moderate variability/ + accels/ no decels UCs: q3-4 mins, palpate mild-moderate VE: 5/90/-1, vtx, anterior, bulging bag of water Pitocin turned off Assessment: IUP at 39+1; IOL for IUGR (2.9%; S/D 2.3) active labor No evidence of acidemia. Regular contractions Plan: Hold Pitocin until pt comfortable with epidural Consider AROM and Pitocin once pt is comfortable Continuous monitoring per protocol Anticipate progression to
[2019-05-25] MEDS ORDERED: fentaNYL* 50 MCG/ML 2 ML VIAL (100 MCG VIAL) IV PRN (14:21)
[2019-05-25] MEDS ORDERED: fentaNYL* 50 MCG/ML 2 ML VIAL (100 MCG VIAL) ONE (14:24)
--- NOTE | 2019-05-25 14:58 | PN ---
Progress Note - Progress Note Date of Service: 05/25/19 Note: Anesthesia called me to the bedside Pt very uncomfortable and unable to sit still for epidural Recommend fentanyl (25mcg), rx ordered Prior to epidural placement, VE as pt felt need to poop VE: /-1 Stayed at bedside for epidural
[2019-05-25] MEDS ORDERED: Sodium Citrate/Citric Acid* 15 ML UDC PO PRN (15:11)
[2019-05-25] MEDS ORDERED: Famotidine TAB* 20 MG PO PRN (15:11)
[2019-05-25] MEDS ORDERED: EPHEDrine (Pressors)* 50 MG/ML VIAL IV PUSH PRN ×2 (15:11)
[2019-05-25] MEDS ORDERED: Phenylephrine 40 MCG/ML SYRINGE IV PUSH PRN ×2 (15:11)
[2019-05-25] MEDS ORDERED: Lactated Ringers 1000 ML Bag* 500 ML IV PRN ×2 (15:11)
[2019-05-25] MEDS ORDERED: Lactated Ringers 1000 ML Bag* 1,000 ML IV ONE (15:11)
[2019-05-25] MEDS ORDERED: OBEPIDURAL* 250 ML EPIDURAL SCH (16:00)
[2019-05-25] MEDS ORDERED: Lactated Ringers 1000 ML Bag* 1,000 ML IV SCH ×2 (16:00→20:00)
--- NOTE | 2019-05-25 17:32 | PN ---
Progress Note - Progress Note Date of Service: 05/25/19 Note: Subjective: Pt is very comfortable with epidural. Shaking. Denies pressure, urge to push. FOB at bedside, not involved. Mother at bedside, supportive. Objective: FHR: Baseline 120/ moderate variability/ + accels/had one prolonged decel, return to baseline UCs: q3-4 mins, palpate moderate VE: 9.5/100/-1, AROM, thin mec Pitocin@2mU Assessment: IUP at 39+1; IOL for IUGR (2.9%; S/D 2.3) Active labor Category I tracing; no evidence of acidemia. Regular contractions Plan: Continuous monitoring per protocol Anticipate progression to
[2019-05-25] MEDS ORDERED: Acetaminophen TAB* 325 MG PO PRN (19:47)
[2019-05-25] MEDS ORDERED: Glycerin ADULT SUPP PR PRN (19:47)
[2019-05-25] MEDS ORDERED: Oxytocin in LR* 20 UNITS/1,000 ML BAG IVPB SCH (20:00)
[2019-05-25] MEDS ORDERED: ceFAZolin 1 GM ADVAN(*) 1 GM in NS 0.9% 50 ML* 50 ML IVPB SCH (20:00)
[2019-05-25] MEDS: Ibuprofen TAB* 600 MG PO PRN (20:36)
[2019-05-25] MEDS: Dibucaine 1% 28.35 GM TUBE PR PRN (20:36)
[2019-05-25] MEDS: Witch Hazel PAD* JAR TOPICAL PRN (20:36)
[2019-05-25] MEDS: Docusate CAP* 100 MG PO SCH (20:37)
--- NOTE | 2019-05-25 20:45 | PN ---
Progress Note - Progress Note Date of Service: 05/25/19 Note: Called to bedside by RN, pt feeling pressure. While in room - baby off monitor and difficult to trace - maternal vs. . FSE placed and FHR found to be 120- 130s. Pt was also noted to be complete and +1. Pushing commenced. Category II strip while pushing. Deep variables noted with contractions/pushing, return to baseline following contraction. O2 given via face mask, fluids infusing. Strong pushing effort led to appropriate descent. As pushing progressed, FHR slow to return to baseline. NICU team called to bedside and Franci Gutierrez MD called to assess feasibility of VAVD. Dr. Gutierrez assumed care of patient. See MD documentation for complete delivery note.
[2019-05-25] MEDS ORDERED: Simethicone TAB* 80 MG TAB.CHEW PO SCH (21:00)
[2019-05-25] MEDS ORDERED: Lidocaine 1% INJ* 10 MG/ML 30 ML SDV ONE (22:56)
[2019-05-26] MEDS: Ibuprofen TAB* 600 MG PO PRN ×4 (03:30→22:23)
[2019-05-26 08:13] LABS: ABS Basophils 0.1 10^3/ul (0-0.2); ABS Lymphocytes 2.2 10^3/ul (1.0-4.8); ABS Monocytes 1.1 10^3/ul (0-0.8); ABS Neutrophils 11.6 10^3/ul (1.5-7.7); Eosinophil % 0.2 %; Hematocrit 34 % (35-47); Hemoglobin 11.7 g/dL (12.0-16.0); Lymphocyte % 14.7 %; Mean Corpuscular HGB Conc 35 g/dL (31-36); Mean Corpuscular Hemoglobin 33 pg (27-31); Mean Corpuscular Volume 93 fL (80-97); Mean Platelet Volume 9.7 fL (7.4-10.4); Platelet Count 176 10^3/uL (150-450); Red Cell Distribution Width 13 % (10-15)
[2019-05-26] MEDS ORDERED: Ferrous Gluconate TAB* 324 MG TAB PO SCH (09:00)
[2019-05-26] MEDS: Docusate CAP* 100 MG PO SCH ×3 (09:41→20:42)
[2019-05-26 15:45] LABS: TSH (Thyroid Stimulating Horm) 2.68 mcIU/mL (0.34-5.60)
[2019-05-26 15:47] LABS: Free T4 0.69 ng/dL (0.61-1.12)
[2019-05-26] MEDS: Dibucaine 1% 28.35 GM TUBE PR PRN (22:23)
[2019-05-27] MEDS: Ibuprofen TAB* 600 MG PO PRN (05:16)
[2019-05-27 07:29] VITALS: BP 134/78
[2019-05-27] MEDS: Docusate CAP* 100 MG PO SCH (10:09)
[2019-05-27] MEDS: Witch Hazel PAD* JAR TOPICAL PRN (10:09)
--- NOTE | 2019-06-14 17:23 | PROCNOTE ---
[facility] OB: Delivery Note - Delivery A Date of : 05/25/19 Time of : 19:14 Sex: Male Weight at : 5 lb 10 oz Score 1 Minute: 9 Score 5 Minutes: 9 Gestational Age in Weeks and Days at Delivery: 39 Weeks and 1 Days Delivery Method: Spontaneous Vaginal Labor: Spontaneous Did Patient attempt ?: N/A, No Previous Amniotic Fluid: Meconium Estimated Blood Loss: 200 Anesthesia/Analgesia: CEI for Labor Delivered By: Viet Gutierrez Nursery Level of Nursery: Regular/Bedside - Perineum Perineal Injury: Midline Episiotomy - Events Delivery Events of Note: Pitocin During Labor, Supplemental O2 to Mother, Full Course of Antibiotics, Post- Bleeding - Meds Given
== END 2019-05-27 12:25 | disposition home or self-care (01) | DRG 560 ==
LOC: MCHOBOUT 17:47 → MCHOB 18:42
PROVIDERS: ADMIT Midwife; ATTEND Obstetrics & Gynecology
PROC: 4A1HXCZ Monitoring of Products of Conception, Cardiac Rate, External Approach (ICD-10-PCS; 2019-05-24)
PROC: 10907ZC Drainage of Amniotic Fluid, Therapeutic from Products of Conception, Via Natural or Artificial Opening (ICD-10-PCS; 2019-05-24)
PROC: 0U7C7ZZ Dilation of Cervix, Via Natural or Artificial Opening (ICD-10-PCS; 2019-05-24)
PROC: 3E0P7VZ Introduction of Hormone into Female Reproductive, Via Natural or Artificial Opening (ICD-10-PCS; 2019-05-24)
PROC: 3E033VJ Introduction of Other Hormone into Peripheral Vein, Percutaneous Approach (ICD-10-PCS; 2019-05-24)
PROC: 10E0XZZ Delivery of Products of Conception, External Approach (ICD-10-PCS; principal; 2019-05-25)
PROC: 0W8NXZZ Division of Female Perineum, External Approach (ICD-10-PCS; 2019-05-25)
DX: O36.5930 Maternal care for other known or suspected poor fetal growth, third trimester, not applicable or unspecified (principal); Z16.39 Resistance to other specified antimicrobial drug; Z37.0 Single live birth; O72.1 Other immediate postpartum hemorrhage; O99.824 Streptococcus B carrier state complicating childbirth; O99.334 Smoking (tobacco) complicating childbirth; F17.200 Nicotine dependence, unspecified, uncomplicated; O69.81X0 Labor and delivery complicated by cord around neck, without compression, not applicable or unspecified; O69.89X0 Labor and delivery complicated by other cord complications, not applicable or unspecified; O77.0 Labor and delivery complicated by meconium in amniotic fluid; O76 Abnormality in fetal heart rate and rhythm complicating labor and delivery; Z3A.39 39 weeks gestation of pregnancy; Z88.0 Allergy status to penicillin; Z88.2 Allergy status to sulfonamides
CPT/HCPCS: 36415; 59200; 80307; 84439; 84443; 85025; 86850; 86900; 86901; 87086; 88307; A9270-GY; G0480; J0690; J2270; J2550; J3010